=== PATIENT | male | born 2000 | race Caucasian/White ===

== ENCOUNTER 2022-02-07 21:14 | Emergency (ER) | payer SELFPAY ==
[~2022-02-07] VITALS: Ht 177.8 cm; Wt 84.1 kg
[~2022-02-07 21:14] MED LIST: FLOVENT DI50 MCG/Act; RITALIN 5MG5 MG/TAB PO
[2022-02-07 21:15] VITALS: TEMP 97.9
[2022-02-07 21:59] LABS: BASO # 0.1 K/mm3 (0.0-0.2); BASO % 0.3 % (0.0-2.0); EOS % 0.1 % (0.0-4.0); GRAN # 17.7 K/mm3 (1.4-6.5); GRAN % 80.6 % (42.2-75.2); HEMOGLOBIN 10.8 g/dl (12.5-16.1); LYMPH # 2.5 K/mm3 (1.2-3.4); LYMPH % 11.2 % (20.0-51.0); MEAN CELL VOLUME 92 fl (80.0-95.0); MEAN CORPUSCULAR HEMOGLOBIN 31 pg (26-32); MEAN CORPUSCULAR HGB CONC 34 g/dl (33.0-37.0); MEAN PLATELET VOLUME 11.1 fl (7.4-10.4); MONO # 1.5 K/mm3 (0.1-0.6); MONO % 6.8 % (1.7-9.3); PLATELET COUNT 286 K/mm3 (130-400); RED BLOOD COUNT 3.51 M/mm3 (4.20-5.60); REDCELL DISTRIBUTION WIDTH-CV 12.7 % (11.5-14.5)
[2022-02-07 22:01] LABS: HEMATOCRIT 32.1 % (36.0-47.0)
[2022-02-07 22:06] LABS: INR 1.3 (0.8-3.0); PROTHROMBIN TIME 14.6 SECONDS (9.7-12.8)
[2022-02-07 22:09] LABS: PARTIAL THROMBOPLASTIN TIME 28.3 SECONDS (26.0-37.0)
[2022-02-07 22:18] LABS: ALANINE AMINOTRANSFERASE 30 U/L (0-55); ALKALINE PHOSPHATASE 46 U/L (40-150); ANION GAP 11 mmol/L (7-16); AST,SGOT 44 U/L (5-34); BILIRUBIN,TOTAL 0.4 mg/dL (0.2-1.2); BLOOD UREA NITROGEN 24 mg/dL (8-21); CALCIUM 7.5 mg/dL (8.4-10.2); CARBON DIOXIDE 21 mmol/L (22-29); CHLORIDE 110 mmol/L (98-107); CREATININE, serum 1.44 mg/dL (0.72-1.25); GLUCOSE 135 mg/dL (70-99); POTASSIUM 3.7 mmol/L (3.5-4.5); SODIUM 142 mmol/L (136-145); TOTAL PROTEIN 5.1 gm/dL (6.2-8.1)
[2022-02-07 22:28] LABS: ALCOHOL(ethanol),MEDICAL < 10 mg/dL (0-10)
[2022-02-07 22:30] VITALS: BP 114/54; PULSE 122
== END 2022-02-07 22:35 | disposition short-term general hospital (02) ==
LOC: COL.ER 21:14
PROVIDERS: Emergency Medicine
DX: S37.031A Laceration of right kidney, unspecified degree, initial encounter (principal); K66.1 Hemoperitoneum; S36.039A Unspecified laceration of spleen, initial encounter; S20.221A Contusion of right back wall of thorax, initial encounter; Z28.311 Partially vaccinated for COVID-19; V49.50XA Passenger injured in collision with unspecified motor vehicles in traffic accident, initial encounter; Y92.009 Unspecified place in unspecified non-institutional (private) residence as the place of occurrence of the external cause
CPT/HCPCS: J2405; J3010; J7030; P9016

== ENCOUNTER → 2022-04-23 | Outpatient (CLI) | payer OTHER | LOC: COL.RAD 07:08 | DX: S36.039D Unspecified laceration of spleen, subsequent encounter (principal); S37.031D Laceration of right kidney, unspecified degree, subsequent encounter | CPT/HCPCS: Q9967 ==